=== PATIENT | female | born 1975 | race Caucasian/White ===

== ENCOUNTER 2020-05-17 22:07 | Emergency (ER) | payer OTHER ==
--- NOTE | 2020-05-17 23:02 | RAD ---
LEFT RING FINGER 3 VIEWS: Date: 05/17/2020 HISTORY: Injury. FINDINGS: No signs of fracture or dislocation. IMPRESSION: Negative left ring finger. POS: OFF
--- NOTE | 2020-05-17 23:03 | RAD ---
RIGHT THUMB 3 VIEWS: Date: 05/17/2020 HISTORY: Thumb injury. FINDINGS: Arthritic change of the thumb is noted. I do not see any signs of fracture or dislocation. IMPRESSION: No acute injury. POS: OFF
[2020-05-17] MEDS ORDERED: Naproxen 500 MG TAB ONE (23:44)
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
== END 2020-05-17 23:48 | disposition home or self-care (01) ==
LOC: NAV ERS 22:07
DX: S63.601A Unspecified sprain of right thumb, initial encounter (principal); S63.614A Unspecified sprain of right ring finger, initial encounter; S00.03XA Contusion of scalp, initial encounter; E66.9 Obesity, unspecified; S80.212A Abrasion, left knee, initial encounter; S80.811A Abrasion, right lower leg, initial encounter; Y04.0XXA Assault by unarmed brawl or fight, initial encounter; Y92.410 Unspecified street and highway as the place of occurrence of the external cause
CPT/HCPCS: 70450